=== PATIENT | female | born 1970 | race Asian ===

== ENCOUNTER 2023-01-14 11:47 | Emergency (ER) | payer MEDICAID ==
[~2023-01-14] VITALS: Ht 144.8 cm; Wt 59.1 kg
[2023-01-14 12:17] LABS: BASOPHILS % (AUTO) 0.4 % (0-1); EOSINOPHILS # (AUTO) 0.2 X10'3 (0-0.9); EOSINOPHILS % (AUTO) 1.6 % (0-6); HEMATOCRIT 42.4 % (35.0-45.0); HEMOGLOBIN 13.2 g/dl (12.0-16.0); LYMPHOCYTES # (AUTO) 4.8 X10'3 (1.1-4.8); LYMPHOCYTES % (AUTO) 50.3 % (21-51); MEAN CORPUSCULAR HEMOGLOBIN 21.7 PG (27.0-31.0); MEAN CORPUSCULAR HGB CONC 31.2 g/dL (33.0-36.5); MEAN CORPUSCULAR VOLUME 69.4 FL (78-98); MEAN PLATELET VOLUME 7.3 FL (7.4-10.4); MONOCYTES # (AUTO) 0.7 X10'3 (0-0.9); MONOCYTES % (AUTO) 6.9 % (2-12); NEUTROPHILS # (AUTO) 3.9 X10'3 (1.8-7.7); NEUTROPHILS % (AUTO) 40.8 % (42-75); PLATELET COUNT 200 X10'3 (140-440); RED BLOOD COUNT 6.11 X10'6 (4.20-5.60); RED CELL DISTRIBUTION WIDTH 15.6 % (11.5-14.5); WHITE BLOOD COUNT 9.6 X10'3 (4.5-11.0)
[2023-01-14 12:46] LABS: ALANINE AMINOTRANSFERASE 23 U/L (12-78); ALBUMIN 3.4 G/DL (3.4-5.0); ALBUMIN/GLOBULIN RATIO 0.8 (1.1-1.5); ALKALINE PHOSPHATASE 86 IU/L (46-116); ANION GAP 9 (8-16); ASPARTATE AMINO TRANSFERASE 24 U/L (10-37); BLOOD UREA NITROGEN 21 MG/DL (7-18); BUN/CREATININE RATIO 22.3 (6.6-38.0); CALCIUM 8.9 MG/DL (8.5-10.1); CHLORIDE 107 MMOL/L (99-107); CREATININE 0.94 MG/DL (0.40-0.90); GLUCOSE 93 MG/DL (70-104); MAGNESIUM 1.8 MG/DL (1.5-2.4); POTASSIUM 3.4 MMOL/L (3.5-5.1); SODIUM 142 MMOL/L (135-145); TOTAL CARBON DIOXIDE 25.8 MMOL/L (24-32); TOTAL PROTEIN 7.6 G/DL (6.4-8.2); eGFR 63 ML/MIN
[2023-01-14 12:59] LABS: BILIRUBIN,TOTAL 0.2 MG/DL (0.1-1.0)
[2023-01-14 14:54] LABS: MICROCYTOSIS 2+; PLATELET ESTIMATE NORMAL
[2023-01-14 14:56] LABS: ELLIPTOCYTES FEW; SCHISTOCYTES FEW
--- NOTE | 2023-01-14 21:39 | NUR ---
notified dr rucker re pts BP [phone]
[2023-01-14] MEDS ORDERED: AMLO5TAB PO (22:03)
[2023-01-14] MEDS ORDERED: acetaminophen 325mg tablet PO ONE (22:05)
[2023-01-14] MEDS ORDERED: amLODIPine 5mg tablet PO ONE (22:05)
--- NOTE | 2023-01-14 22:20 | NUR ---
CALL TO PHARMACY TO VERIFY MEDS, PHARMACY STATES SHORT WAIT
[2023-01-14 22:36] VITALS: BP 182/100
== END 2023-01-14 22:39 | disposition home or self-care (01) ==
LOC: ER 11:50
DX: M54.6 Pain in thoracic spine (principal); I10 Essential (primary) hypertension; R10.13 Epigastric pain
CPT/HCPCS: 36415; 71045; 80053; 83735; 83880; 84484; 85008; 85025; 93005; 99285